=== PATIENT | male | born 1965 | race Caucasian/White ===

== ENCOUNTER 2023-01-26 10:26 | Emergency (ER) | payer MEDICAID, SELFPAY ==
[2023-01-26 10:33] VITALS: BP 113/67; PULSE 65; RESP 18; TEMP 36.8; O2SAT 97
--- NOTE | 2023-01-26 10:47 | CRLHL7_ITS ---
For Patients: As a result of the Century Cures Act, medical imaging exams and procedure reports are released immediately into your electronic medical record. You may view this report before your referring provider. If you have questions, please contact your health care provider. INDICATION: s/p laryngectomy/thyroidectomy x1 month. bilat ankle edema53 images total TECHNIQUE: Ultrasound venous duplex lower extremity bilateral. Compression venous exam was performed using young scale, color Doppler, and spectral Doppler imaging. COMPARISON: None. FINDINGS: Sonographic imaging demonstrates the common femoral, deep femoral, superficial femoral, popliteal, posterior tibial and greater saphenous veins to be fully compressible with normal color Doppler blood flow in both lower extremities. IMPRESSION: Normal bilateral lower extremity venous ultrasound, no sign of deep venous thrombosis. Dictated by: Betito Carrillo MD @ 01/26/2023 11:53:55 (Electronically Signed)
--- NOTE | 2023-01-26 13:21 | ED_ITS ---
HPI - General Adult General Date Seen: 01/26/23 Chief complaint: Lower Extremity Swelling Stated complaint: Edema on both ankles Time Seen by Provider: 01/26/23 10:39 Source: other Mode of arrival: ambulatory Limitations: no limitations History of Present Illness HPI narrative: Patient is a 57-year-old male who was about 1 month status post surgery at [facility] for a head and neck cancer. As result, he is currently nonverbal. The past few days he has had some swelling in his ankles and calves, largely symmetric although slightly worse on the right than the left. Not significantly painful. A little bit itchy and he has some scratch muñoz on his legs, no other erythema or rashes. Has not had chest pain or difficulty breathing. No fevers. No history of DVT or PE. Not taking any anticoagulation since his surgery. Does not have a history of heart failure, typically does not have swelling in his legs. He was supposed to see his primary doctor at the [facility] today at 2:00 p.m., but his process stripper says that they would not see him until he came to the ER and had blood clots ruled out. He is very eager to get out of here because he does not want to miss his appointment. They would like to forego any other workup, he just wants to make sure he does not have blood clots and then help address anything else with his primary doctor later this afternoon. Related Data Home Medications Medication Instructions Recorded Confirmed amlodipine 5 mg tablet 5 mg PO DAILY 01/26/23 01/26/23 cilostazol 50 mg tablet 50 mg PO BID 01/26/23 01/26/23 levothyroxine 125 mcg tablet 125 mcg PO DAILY 01/26/23 01/26/23 spironolactone 25 mg tablet 25 mg PO DAILY 01/26/23 01/26/23 Allergies Allergy/AdvReac Type Severity Reaction Status Date / Time No Known Drug Allergies Allergy Verified 01/26/23 10:32 Review of Systems Status of ROS: Reports: 10 or more systems reviewed and unremarkable except as noted in History and below [facility] Social History Smoking Status: Current some day smoker Non-prescribed substance use: denies use Exam Narrative: Exam Narrative: Vital signs reviewed In general, an alert, nontoxic male. Breathing easily. Heart: Regular rate and rhythm. Lungs: Clear. Abdomen: Soft and nontender. Extremities: He has mild pitting edema in both pretibial areas and ankles. Some secondary excoriation is noted, no other erythema. No warmth. No calf tenderness. Distal CMS is intact. Skin: Warm and dry. No other rash or lesion. Const: Vital Signs, click to edit/add: Vital Signs - 24 hr 01/26/23 10:33 Temperature 98.3 F Pulse Rate [Pulse Oximeter] 65 Respiratory Rate 18 Blood Pressure [Le ft Upper Arm] 113/67 Pulse Oximetry 97 Oxygen Delivery Me thod Room Air Course Course Hospital Course: Patient had a bilateral lower extremity Doppler which was read by Radiology as negative. I have relayed this to him and he would like to go get to his appo intment. I have reviewed with them I did not do any other evaluation for other possible etiologies of lower extremity edema which of course there are multiple. I have told him he needs to make sure to discuss this with his primary doctor in a couple of hours when he sees him and he assures me he will. Vital Signs Vital signs: Initial Vital Signs Temperature 98.3 F 01/26/23 10:33 Temperature Source Temporal Artery Scan 01/26/23 10:33 Pulse Rate 65 01/26/23 10:33 Respiratory Rate 18 01/26/23 10:33 Blood Pressure 113/67 01/26/23 10:33 Blood Pressure Mean 82 01/26/23 10:33 Blood Pressure Position Supine 01/26/23 10:33 Pulse Oximetry 97 01/26/23 10:33 Oxygen Delivery Method Room Air 01/26/23 10:33 Vital Signs Temperature 98.3 F 01/26/23 10:33 Pulse Rate 65 01/26/23 10:33 Respiratory Rate 18 01/26/23 10:33 Blood Pressure 113/67 01/26/23 10:33 Pulse Oximetry 97 01/26/23 10:33 Oxygen Delivery Method Room Air 01/26/23 10:33 Temperature 98.3 F 01/26/23 10:33 Pulse Rate 65 01/26/23 10:33 Respiratory Rate 18 01/26/23 10:33 Blood Pressure 113/67 01/26/23 10:33 Pulse Oximetry 97 01/26/23 10:33 Oxygen Delivery Method Room Air 01/26/23 10:33 Discharge Plan Discharge Clinical Impression: Swelling of both lower extremities Patient Disposition: Home, Self-Care Condition: Stable Instructions: Leg Edema (ED) Additional Instructions: Your ultrasound preliminary read today is negative for blood clots in both legs. The final read for your ultrasound is not done yet, if this deviates from the preliminary read at all we will call you. Prescriptions: No Action cilostazol 50 mg tablet 50 mg PO BID amlodipine 5 mg tablet 5 mg PO DAILY spironolactone 25 mg tablet 25 mg PO DAILY levothyroxine 125 mcg tablet 125 mcg PO DAILY Follow Up/Referrals: Raphael George MD [Staff Physician] - Stand Alone Forms: [employer] Info Instructions
== END 2023-01-26 11:54 | disposition home or self-care (01) ==
PROVIDERS: Emergency Provider Emergency Medicine
DX: R22.43 Localized swelling, mass and lump, lower limb, bilateral (principal)
CPT/HCPCS: 93970; 99283